=== PATIENT | female | born 1980 | race Caucasian/White ===

== ENCOUNTER 2018-04-16 14:58 | Emergency (ER) | payer OTHER ==
[~2018-04-16] VITALS: Ht 157.5 cm; Wt 68.0 kg
[~2018-04-16 14:58] MED LIST: ABILIFY10 MG PO; AZITHROMYCIN 2250 MG PO; DOXYCYCLINE 10100 M1 PO; FLONASE 0.05%50 MCG NASAL; FLOVENT HFA 2220 MCG; KLONOPIN0.5 MG PO; NOHOMEMEDICATIONS; NORCO 5-325 TA1 EACH PO; PREDNISONE 20 M20 MG PO; PREDNISONE50 MG PO; PROAIR HFA8.5 GM INH; TRINATE TABLET1 TAB PO; VENTOLIN HFA 1818 GM INH; ZPAK PO; ZYRTEC10 MG PO
[2018-04-16 15:02] VITALS: BP 133/54
[2018-04-16] MEDS ORDERED: KEFLEX500 M1 PO (15:24)
[2018-04-16] MEDS ORDERED: ACETAMINOPHEN-1 EAC1 PO (15:24)
[2018-04-16] MEDS ORDERED: LIDOCAINE VISC100 ML SWISH&SPIT (15:28)
== END 2018-04-16 15:30 | disposition home or self-care (01) ==
LOC: M.ERS 14:58
DX: K08.89 Other specified disorders of teeth and supporting structures (principal)

== ENCOUNTER 2019-03-11 18:57 | Emergency (ER) | payer OTHER ==
[~2019-03-11] VITALS: Ht 157.5 cm; Wt 68.0 kg
[~2019-03-11 18:57] MED LIST changes: +ACETAMINOPHEN-1 EAC1 PO; +KEFLEX500 M1 PO; +LIDOCAINE VISC100 ML SWISH&SPIT
[2019-03-11 19:38] LABS: ABSOLUTE EOSINOPHILS 0.2 thou/uL (0.0-0.7); ABSOLUTE MONOCYTES 0.7 thou/uL (0.0-1.2); ABSOLUTE NEUTROPHILS 3.9 thou/uL (1.6-8.1); BASOPHILS 0.6 %; EOSINOPHILS 2.6 %; HEMATOCRIT 35.3 % (37.0-47.0); HEMOGLOBIN 12.2 gm/dL (12.0-15.0); LYMPHOCYTES 38.4 %; MCH 29.3 pg (26.0-34.0); MCHC 34.6 g/dL (28.0-37.0); MCV 84.6 fL (80.0-100.0); MONOCYTES 8.3 %; MPV 8.1 fl. (7.2-11.1); NUCLEATED RBCS 0 /100WBC; PLATELET COUNT* 359 thou/uL (150-400); POLYS 50.1 %; RBC 4.17 mil/uL (4.20-5.00); RDW-CV 13.2 % (10.5-14.5); WBC 7.8 thou/uL (4.0-11.0)
[2019-03-11 19:46] LABS: CALCIUM 8.5 mg/dL (8.5-10.1); CREATININE 0.9 mg/dL (0.6-1.3); POTASSIUM 3.5 mmol/L (3.5-5.1)
[2019-03-11 19:57] LABS: ALBUMIN 3.7 g/dL (3.4-5.0); TOTAL BILIRUBIN 0.2 mg/dL (<0.1-1.0); TOTAL PROTEIN 6.8 g/dL (6.4-8.2)
[2019-03-11 21:54] VITALS: BP 116/63
--- NOTE | 2019-03-12 09:32 | EKG ---
[place] [address] ELECTROCARDIOGRAM REPORT Name: DENY ZARATE Room: [facility]#: [id number] Admission: 03/11/19 Attend Phys: Discharge: 03/11/19 Date of : 80 Report #: [id number] THIS REPORT FOR: //name// [facility] ED Test Date: 2019-03-11 Test Time: 19:00:42 Pat Name: DENY ZARATE Department: Room: Gender: F [employer]: : 1980 Requested By: Raysa Mccain Order Number: [id number] MD: David Winkler Measurements Intervals [place] Rate: 96 P: 77 ND: 146 QRS: 49 QRSD: 105 T: 15 QT: 355 QTc: 449 Interpretive Statements Sinus rhythm Probable left atrial enlargement Minimal ST depression, inferior leads Baseline wander in lead(s) II,III,aVF,V5 No previous ECG available for comparison Electronically Signed On 03-12-2019 9:32:21 [employer] by David Winkler [email or web address] <ELECTRONICALLY SIGNED> By: David Winkler MD, [facility] 03/12/19 0932 99 99 David Winkler MD, FACC /EPI
== END 2019-03-11 21:54 | disposition home or self-care (01) ==
LOC: M.ERS 18:57
PROVIDERS: Personal Emergency Response Attendant
DX: R07.89 Other chest pain (principal); F41.0 Panic disorder [episodic paroxysmal anxiety]; J45.909 Unspecified asthma, uncomplicated; Z88.1 Allergy status to other antibiotic agents; Z88.0 Allergy status to penicillin